=== PATIENT | male | born 1975 | race Caucasian/White ===

== ENCOUNTER → 2018-07-08 06:55 | Outpatient (CLI) | payer MEDICAID, SELFPAY ==
--- NOTE | 2018-07-08 07:45 | MRI_ITS ---
STUDY: MRI CERVICAL SPINE WITHOUT CONTRAST REASON FOR EXAM: Male, 42 years old. Neck pain TECHNIQUE: Standardized fat and water weighted pulse sequences were obtained in the sagittal and axial planes. COMPARISON: None FINDINGS: There is no tonsillar ectopia. There is a normal cervicomedullary junction. The cervical spinal cord is of normal morphology and signal intensity with no myelomalacia, contusion or myelopathy. Cervical spine demonstrates a normal lordotic curvature with no acute fractures or dislocations and no abnormal marrow infiltrative processes. The disc spaces are of normal height and signal intensity. The craniovertebral junction is normal. The tectorial membrane is normal.. C2-3: Normal endplates. Normal disc height, signal and morphology. Normal central canal and intervertebral neural foramina. C3-4: Normal endplates. Normal disc height, signal and morphology. Normal central canal and intervertebral neural foramina. C4-5: Normal endplates. Normal disc height, signal and morphology. Normal central canal and intervertebral neural foramina. C5-6: Normal endplates. Normal disc height, signal and morphology. Normal central canal and intervertebral neural foramina. C6-7: Normal endplates. Normal disc height, signal and morphology. Normal central canal and intervertebral neural foramina. C7-T1: Normal endplates. Normal disc height, signal and morphology. Normal central canal and intervertebral neural foramina. . . MRI/Spine Cervical (Routine) IMPRESSION: Normal unenhanced MR examination of the cervical spine. Electronically Signed: Jovan Reynoso MD at 7:44 EDT Tel , Service support ,
== END ==
PROVIDERS: Family Provider Nurse Practitioner Family; PCP Nurse Practitioner Family; Referring Provider Anesthesiology Pain Medicine; Visit Provider Anesthesiology Pain Medicine
DX: M54.12 Radiculopathy, cervical region (principal); M47.812 Spondylosis without myelopathy or radiculopathy, cervical region; M54.2 Cervicalgia
CPT/HCPCS: 72141

== ENCOUNTER → 2024-07-11 | Outpatient (CLI) | payer MEDICARE, SELFPAY ==
--- NOTE | 2024-07-11 14:10 | RAD_ITS ---
EXAM: XR Lumbosacral Spine, 2 or 3 Views CLINICAL INDICATION: BACK PAIN TECHNIQUE: Frontal and lateral views of the lumbar spine and sacrum. COMPARISON: No relevant prior studies available. FINDINGS: VERTEBRAE: Unremarkable. No acute fracture. Normal alignment. SACRUM/COCCYX: Unremarkable as visualized. No acute fracture. DISC SPACES: No acute findings. No significant narrowing. SOFT TISSUES: Unremarkable. RAD/Lumbar Spine 2 or 3 Views IMPRESSION: No acute fracture. Reading Location: [facility]
--- NOTE | 2024-07-11 14:10 | RAD_ITS ---
EXAM: XR Cervical Spine, 2 or 3 Views CLINICAL INDICATION: NECK PAIN TECHNIQUE: Frontal and lateral views of the cervical spine. COMPARISON: No relevant prior studies available. FINDINGS: VERTEBRAE: Moderate endplate degenerative changes and disc disease of C6-7. No definite fracture. Normal alignment. DISC SPACES: No acute findings. No significant narrowing. SOFT TISSUES: Unremarkable. RAD/Cerv Spine 2 or 3 Views IMPRESSION: Moderate endplate degenerative changes and disc disease of C6-7. Reading Location: [facility]
== END | disposition home or self-care (01) ==
LOC: RAD 14:04
PROVIDERS: PCP Nurse Practitioner Family; Referring Provider Anesthesiology Pain Medicine; Visit Provider Anesthesiology Pain Medicine
DX: M54.9 Dorsalgia, unspecified (principal); M54.2 Cervicalgia
CPT/HCPCS: 72040; 72100

== ENCOUNTER 2024-08-21 09:00 | Outpatient (RCR) | payer MEDICARE, MEDICAID, SELFPAY ==
--- NOTE | 2024-07-18 15:02 | HP.PTEVAL_ITS ---
Patient's Visit Information Visit Information Visit Information: MOHINI GREGORY is a 48 year old M referred to Physical Therapy by Dr. Ivette June MD with a diagnosis of NECK AND BACK PAIN. Date of Evaluation: 07/18/24 Physical Therapist: Cora Sun PT, Cert MDT Visit Plan Frequency: 2x /Week Duration: 4-6 Weeks Plan: AQUATIC THERAPY FOR PAIN RELIEF, POSTURE CORRECTION/STRENGTHENING, INSTRUCTION IN APPROPRIATE BODY MECHANICS AND ACTIVITY MODIFICATIONS. DLS STARTING WITH A NEUTRAL SPINE PROGRESSING ROM TOLERATED. SCAPULAR STRENGTHENING/STABILIZATION, WINIFRED UE & LE ROM, STRETCHING AND STRENGTHENING. HEP INSTRUCTION. Subjective Subjective: Work/Leisure: UNEMPLOYEED. 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 Disability: YES X ABOUT 5 YEARS FOR NECK, BACK AND KNEES. Present symptoms: NECK AND BACK PAIN. R UE > L UE PAIN, NUMBNESS AND TINGLING. WINIFRED KNEE PAIN. INTERMITTENT WINIFRED LE NUMBNESS AND TINGLING R>L. Present since: CHRONIC Pain Scale: WORST 9/10, LEAST 3/10 Currently: 5/10 Is it getting better, worse or staying the same: STAYING THE SAME Commenced as a result of: NO APPARENT REASON OTHER THAN OVER-USE Symptoms at onset: LOW BACK PAIN Worse: SITTING, STANDING, WALKING, BENDING, LIFTING, SLEEPING Better: HOT BATH, SMOKING WEED, CHANGE OF POSITION, SOMETIMES STRETCHING, GABAPENTIN Disturbed sleep: YES Previous history/Previous treatment: PHYSICAL THERAPY, INJECTIONS IN KNEES, NERVES BURNED IN NECK, CORTISONE SHOTS IN HIPS, PAIN MEDS. PATIENT DENIES NECK SURGERY, LUMBAR SURGERY, SHLD SURGERIES, HIP SURGERIES AND KNEE SURGERIES Treatment this episode: GABAPENTIN, IBUPROFEN Coughing/sneezing/straining: POSITIVE FOR INCREASED PAIN Dizziness: SOMETIMES Tinnitus: YES Nausea: NO Shortness of Breath: YES - COPD (USING 3 INHALERS) Difficulty Swallowing: NO Gait: INTERMITTENT USE OF WALKING STICK/CANE Bowel or Bladder Dysfunction: NO Accidents: 60 FOOT FALL FROM [place]. R THUMB CRUSH - RECOVERED. Unexplained weight loss: NO Imaging: RECENT NECK AND BACK X-RAYS - SEE [facility] EMR. WINIFRED TORN ACL'S - UNREPAIRED. PMH/Recent major surgery: COPD. Objective Objective: Sitting/Standing Posture: PPT AND EXCESSIVE LUMBAR FLEXION WITH FH AND RSH'S IN SITTING. L SHLD MORE FORWARD THAN R. ANTERIOR PELVIC TILT IN STANDING. NORMAL LORDOSIS. NO RLEVANT LATERAL SHIFT. Active Correction of posture: INCREASES C/O LBP. Other Observations: INDEP GAIT INTO PT X > 300 FEET WITH WALKING STICK WITH LIGHT USE OF STICK INTERMITTENTLY. NO LOB. FAIR CADANCE. ABLE TO INDEP'LY TRANSFER FROM SIT TO STAND WITHOUT UE ASSIST. Sensory deficit: DECREASE LIGHT TOUCH REPORTED R UE AND LE COMPARED TO L WITH LIGHT TOUCH SENSATION TESTING. ROM deficit: WINIFRED UE ROM WFL EXCEPT WINIFRED SHL ER TIGHTNESS. WINIFRED HS AND CALF TIGHTNESS. Motor deficit: R SHLD 4-/5, ELBOW 4/5. L SHLD 5/5, ELBOW 5/5. 55 LBS R CERTIFIED SOC[employer] WORKERS IN HE[employer] STRENGTH AND 90 LBS L CERTIFIED SOC[employer] IN [employer] STRENGTH (PATIENT IS R HAND DOMINANT). WINIFRED LE STRENGTH 5/5 WITH MMT'ING EXCEPT R HIP 4/5. Reflexes: WINIFRED UE'S 2+. UNABLE TO ELICIT WINIFRED LE'S. Dural Signs: POSTIVE L LE PATIENT ABLE TO HEEL WALK AND TOE WALK WITHOUT UE ASSIST. Lumbar mvmt loss: flex - MAXIMILIAN ext - MAXIMILIAN R SG - MOD L SG - MIN PATIENT C/O PAIN WITH LUMBAR ROM TESTING ALL PLANES Cervical Mvmt Loss: Flex: NIL Pro: NIL Ext: MIN Ret: MIN RSB: MIN LSB: MIN R Rot: MIN L Rot: MIN PATIENT REPORTS HIS NECK ISN'T BOTHERING HIM TOO MUCH TODAY. Postural strength: FAIR Core strength: FAIR Palpation: PATIENT DENIES PAIN WITH PALPATION OF CERVICAL AND LUMBAR SPINE WELL CERVICAL AND LUMBAR MUSCULATURE. Balance/Special Test Scores Oswestry Low Back Score: 28 Oswestry Neck Score: 28 Goals Goal 1:: DECREASE C/O SPINE PAIN BY AT LEAST 25% TO EASE ADL'S. Goal Time Frame: 4-6 Weeks Goal 2:: IMPROVE SITTING, STANDING AND WALKING FUNCTION. Goal Time Frame: 4-6 Weeks Goal 3:: INSTRUCT IN PROPHYLAXIS. Rehabilitation Potential Physical Therapy Diagnosis: THIS PATIENT PRESENTS TO PT WITH C/O CHRONIC NECK AND LOW BACK PAIN. HE HAS LOW BACK STIFFNESS > NECK STIFFNESS, R UE AND R LE WEAKNESS ALONG WITH POOR POSTURE AND CORE WEAKNESS. Rehabilitation Potential: Good Anticipated Interventions Patient/Client Instruction: Educate patient on: Condition, Plan of Care and Risk Factors For the Purpose of:: To improve self management Therapeutic Exercise to Include: Strength training, Body mechanics, Postural training, Flexibilty training, Neuromotor development, In an aquatic setting, Dynamic Lumbar Stabilization and Scapular Strength/Stabilization For the Purpose of:: To decrease pain, To increase ROM, To improve muscle performance and motor function, To increase tolerance to activity/condition/position, To improve ability of physical actions for home/community/work/leisure, To improve gait and locomotor functions, To increas e flexibility/ROM and To improve self management Text: Thank you for the opportunity to evaluate your patient. For Medicare and Medicare HMO plans, please review the plan of care and approve it. It will need to be FAXED BACK to us at [phone] for Medicare purposes. For Medicare only, by signing this I certify the plan of care. Please let me know if there are questions or concerns regarding this plan of care. Physician Signature: Date:
--- NOTE | 2024-08-21 09:50 | HP.PTDCSUM_ITS ---
Discharge Summary D/C summary: It has been my pleasure to treat MOHINI GREGORY referred by Dr. Ivette Lamb MD, with the diagnosis of NECK AND BACK PAIN for a total of 10 visit(s). Discharge Date: 08/21/24 Please see the following information for a summary of their discharge status. Subjective Subjective: PATIENT REPORTS HE IS NO BETTER AND NO WORSE THAN HE WAS BEFORE STARTING THERAPY. HE STATES IT FEELS GOOD TO BE SUSPENDED IN THE DEEP END OF THE WATER BUT THE PAIN RELIEF DOES NOT LAST. PATIENT REPORTS HE LIKES AQUATIC THERAPY BETTER THAN THE PHYSICAL THERAPY HE HAS HAD IN THE PAST STATING AT LEAST I DIDN'T HURT WORSE. Pain Back: Pain Intensity (Out of 10): 4 R knee: Pain Intensity (Out of 10): 6 NECK: Pain Intensity (Out of 10): 2 Overall Improvement % Improvement: 0 Objective Objective/Function: PATIENT WAS SEEN TODAY FOR RE-ASSESSMENT OF PROGRESS TOWARD THE SET PT GOALS AND THE NEED FOR FURTHER PHYSICAL THERAPY VS READINESS FOR DISCHARGE. OVER-ALL THERE ARE NO SIGNIFICANT OBJECTIVE CHANGES SEEN OR SUBJECTIVE CHANGES REPORTED TODAY. UPON EXAM TODAY: THIS PATIENT AMBULATES INDEP'LY INTO PT TODAY WITHOUT ANY AD'S AND NO LOB. TUG TIME: 9.40 SEC. WITHOUT AD. 30 STS TEST: 7 WITHOUT UE ASSIST. Sensory deficit: DECREASE LIGHT TOUCH REPORTED R UE AND LE COMPARED TO L WITH LIGHT TOUCH SENSATION TESTING. ROM deficit: WINIFRED UE ROM WFL EXCEPT WINIFRED SHL ER TIGHTNESS. WINIFRED HS AND CALF TIGHTNESS. Motor deficit: R SHLD 4-/5, ELBOW 4/5. L SHLD 5/5, ELBOW 5/5. 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 WINIFRED LE STRENGTH 5/5 WITH MMT'ING EXCEPT R HIP 4/5. Dural Signs: POSTIVE R LE AND NEGATIVE R LE TODAY. PATIENT ABLE TO HEEL WALK AND TOE WALK WITHOUT UE ASSIST. Lumbar mvmt loss: flex - MOD ext - MAXIMILIAN R SG - MOD L SG - MIN PATIENT C/O PAIN WITH LUMBAR ROM TESTING ALL PLANES Cervical Mvmt Loss: Flex: NIL Pro: NIL Ext: MIN Ret: MIN RSB: MIN LSB: MIN R Rot: MIN L Rot: MIN PATIENT REPORTS HIS NECK ISN'T BOTHERING HIM TOO MUCH TODAY. Postural strength: FAIR Core strength: FAIR Goals Goal 1:: DECREASE C/O SPINE PAIN BY AT LEAST 25% TO EASE ADL'S. Goal Progress: Not Progressing Goal 2:: IMPROVE SITTING, STANDING AND WALKING FUNCTION. Goal Progress: Not Progressing Goal 3:: INSTRUCT IN PROPHYLAXIS. Goal Progress: Not Progressing Plan Plan: D/C DUE TO LACK OF PROGRESS. PATIENT PLANS TO MAKE AN KWAME'T FOR RE-CKECK WITH DR. LAMB. D/C Information d/c sentence: If there are questions or concerns regarding this patient's physical therapy, please feel free to call me at [phone]. Thank you for the referral of this patient. Sincerely, Cora Sun, PT, Cert MDT Balance/Gait/Functional tests Balance/Special Test Scores Oswestry Low Back Score: 21 Oswestry Neck Score: 30 Improvement % Improvement: 0
== END 2024-08-21 19:00 | disposition home or self-care (01) ==
LOC: PT 09:00
PROVIDERS: PCP Nurse Practitioner Family; Referring Provider Anesthesiology Pain Medicine; Visit Provider Anesthesiology Pain Medicine
DX: M54.2 Cervicalgia (principal)
CPT/HCPCS: 97113; 97162; 97530